=== PATIENT | male | born 1970 | race African-American/Black ===

== ENCOUNTER 2020-07-31 22:08 | Emergency (ER) | payer SELFPAY ==
[~2020-07-31] VITALS: Ht 172.7 cm; Wt 82.0 kg
[2020-07-31] MEDS ORDERED: KETOROLAC 60MG/2ML VIAL IM STA (22:29)
[2020-07-31] MEDS ORDERED: T3 PO (22:57)
[2020-07-31] MEDS ORDERED: NAPR-681 PO (22:57)
[2020-07-31 23:40] VITALS: BP 155/88
== END 2020-07-31 23:40 | disposition home or self-care (01) ==
LOC: ER 22:27
DX: M25.532 Pain in left wrist (principal); E11.9 Type 2 diabetes mellitus without complications; I10 Essential (primary) hypertension
CPT/HCPCS: 73110; 96372; 99283; J1885; A4565